=== PATIENT | female | born 1985 | race Caucasian/White ===

== ENCOUNTER 2018-01-22 08:00 | Outpatient (CLI) | payer MEDICAID, OTHER ==
[2018-01-22 12:36] LABS: BASOPHILS % (AUTO) 0.4 %; EOSINOPHILS # (AUTO) 0.1 10^3/uL (0.0-0.7); EOSINOPHILS % (AUTO) 2.1 %; HGB - HEMOGLOBIN 12.4 g/dL (12.0-16.0); LYMPHOCYTES # (AUTO) 1.3 10^3/uL (1.5-3.5); LYMPHOCYTES % (AUTO) 22.7 %; MEAN CORPUSCULAR HEMOGLOBIN 27.6 pg (27.0-31.0); MEAN PLATELET VOLUME 8.4 fL (7.9-10.8); MONOCYTES # (AUTO) 0.3 10^3/uL (0.0-1.0); MONOCYTES % (AUTO) 5.4 %; NEUTROPHILS # (AUTO) 4.1 10^3/uL (1.5-6.6); NEUTROPHILS % (AUTO) 69.4 %; PLT - PLATELET COUNT 237 10^3/uL (130-450); RED CELL DISTRIBUTION WIDTH 13.5 % (12.0-15.0); WHITE BLOOD COUNT 5.9 x10^3/uL (4.8-10.8)
[2018-01-22 12:49] LABS: ALBUMIN 3.7 g/dL (3.2-5.5); BILIRUBIN,TOTAL 0.4 mg/dL (0.2-1.0); CALCIUM 9.2 mg/dL (8.5-10.3); CREATININE 0.6 mg/dL (0.4-1.0); TOTAL PROTEIN 7.4 g/dL (6.7-8.2)
[2018-01-24 14:22] LABS: ANA SCREEN NEGATIVE (NEGATIVE)
== END 2018-01-22 08:01 | disposition home or self-care (01) ==
LOC: LAB.WCP 08:00
PROVIDERS: ATTEND Physician Assistant
DX: R53.83 Other fatigue (principal); R10.9 Unspecified abdominal pain
CPT/HCPCS: 36415; 80053; 83516; 84443; 85025; 86038

== ENCOUNTER 2023-12-04 08:00 | Outpatient (CLI) | payer MEDICAID ==
[2023-12-04 16:00] LABS: BILIRUBIN,URINE NEGATIVE (NEGATIVE); GLUCOSE, URINE (UA) NEGATIVE (NEGATIVE); KETONES,URINE (UA) NEGATIVE (NEGATIVE); LEUKOCYTE ESTERASE, URINE NEGATIVE (NEGATIVE); NITRITE,URINE NEGATIVE (NEGATIVE); OCCULT BLOOD,URINE NEGATIVE (NEGATIVE); PH,URINE 5.5 PH (5.0-7.5); PROTEIN,URINE NEGATIVE (NEGATIVE); UROBILINOGEN,URINE 0.2 (NORMAL) E.U./dL (NORMAL)
[2023-12-04 16:03] LABS: CLARITY,URINE CLOUDY (CLEAR)
[2023-12-04 16:11] LABS: AMORPHOUS SEDIMENT,UR Marked /LPF; BACTERIA,URINE None Seen /HPF (None Seen); RBC,URINE None Seen /HPF (0-5); SQUAMOUS EPITHELIAL CELL,UR FEW Squamous (<= Few); WBC,URINE 0-3 /HPF (0-5)
[2023-12-04 16:16] LABS: CREATININE,URINE 147.7 mg/dL; PROTEIN/CREATININE RATIO,URINE 0.1 (<=0.2)
== END 2023-12-04 23:59 | disposition home or self-care (01) ==
LOC: LAB.WC 08:00
PROVIDERS: ATTEND Obstetrics & Gynecology
DX: Z34.90 Encounter for supervision of normal pregnancy, unspecified, unspecified trimester (principal)
CPT/HCPCS: 81001; 82570; 84156; 87086

== ENCOUNTER 2023-12-09 08:37 | Outpatient (CLI) | payer MEDICAID ==
[2023-12-09 08:54] LABS: BASOPHILS % (AUTO) 0.3 %; EOSINOPHILS # (AUTO) 0.1 10^3/uL (0.0-0.7); EOSINOPHILS % (AUTO) 1.8 %; HCT - HEMATOCRIT 37.3 % (37.0-47.0); HGB - HEMOGLOBIN 11.8 g/dL (12.0-16.0); LYMPHOCYTES # (AUTO) 1.4 10^3/uL (1.5-3.5); MEAN CORPUSCULAR HEMOGLOBIN 23.7 pg (27.0-31.0); MEAN CORPUSCULAR HGB CONC 31.6 g/dL (32.0-36.0); MEAN CORPUSCULAR VOLUME 74.9 fL (81.0-99.0); MEAN PLATELET VOLUME 10.1 fL (7.9-10.8); MONOCYTES # (AUTO) 0.3 10^3/uL (0.0-1.0); MONOCYTES % (AUTO) 5.5 %; NEUTROPHILS # (AUTO) 4.3 10^3/uL (1.5-6.6); NEUTROPHILS % (AUTO) 69.2 %; PLT - PLATELET COUNT 245 10^3/uL (130-450); RED BLOOD COUNT 4.98 10^6/uL (4.20-5.40); RED CELL DISTRIBUTION WIDTH 15.8 % (12.0-15.0); WHITE BLOOD COUNT 6.2 x10^3/uL (4.8-10.8)
[2023-12-09 09:10] LABS: ALBUMIN/GLOBULIN RATIO 1.3 (1.0-2.2); BILIRUBIN,TOTAL 0.3 mg/dL (0.2-1.0); CALCIUM 9.9 mg/dL (8.5-10.3); CREATININE 0.6 mg/dL (0.6-1.3); POTASSIUM 3.7 mmol/L (3.5-4.5); TOTAL PROTEIN 7.2 g/dL (6.4-8.9)
[2023-12-10 05:13] LABS: HBsAG SCREEN Negative (Negative); HIV SCREEN 4TH GENERATION Non Reactive (Non Reactive)
[2023-12-10 07:10] LABS: RPR Non Reactive (Non Reactive)
[2023-12-10 09:10] LABS: VARICELLA-ZOSTER AB IGG 639 index (Immune >165)
== END 2023-12-09 08:38 | disposition home or self-care (01) ==
LOC: LAB 08:37
PROVIDERS: ATTEND Obstetrics & Gynecology
DX: O99.891 Other specified diseases and conditions complicating pregnancy (principal); R71.8 Other abnormality of red blood cells
CPT/HCPCS: 36415; 80053; 82728; 84702; 85025; 86592; 86762; 86787; 86803; 86850; 86900; 86901; 87340; 87389

== ENCOUNTER 2023-12-16 08:28 | Outpatient (CLI) | payer MEDICAID ==
--- NOTE | 2023-12-16 10:36 | Ultrasound Report ---
PROCEDURE: OB 1st Trimester INDICATIONS: POSITIVE [facility] OUTSIDE/PRIOR DATING DATA: Last menstrual period (LMP): 10/07/2023. LMP-based estimated date of delivery (VIDAL): 07/13/2024. First dating scan (date and location): 12/16/2023. Estimated date of delivery (VIDAL) from first dating scan: 07/08/2024. TECHNIQUE: Real-time scanning was performed of the fetus and maternal pelvic organs, with image documentation. COMPARISON: None. FINDINGS: Retroverted uterus contains a fundal gestational sac. No subchorionic hemorrhage. There is a single f etal pole with an average crown-rump length of 38.3 mm corresponding to a 10 week 5 day gestation int erval cardiac activity at a rate of 178 bpm. Normal yolk sac and unfused amnion are both seen. Maternal cervix is closed measuring 4.3 cm in length. There is a corpus luteum cyst in the right ovar y. Left ovary appears normal. No free pelvic fluid. IMPRESSION: Single live intrauterine with a gestational age of 10 weeks 5 days and sonographic due date of 07/08/2024. Reviewed by: Hannah Rodriguez MD on 12/16/2023 10:35 AM PDT Approved by: Hannah Rodriguez MD on 12/16/2023 10:35 AM PDT Station ID: [id number]
== END 2023-12-16 08:29 | disposition home or self-care (01) ==
LOC: DI 08:28
PROVIDERS: ATTEND Obstetrics & Gynecology
DX: Z34.91 Encounter for supervision of normal pregnancy, unspecified, first trimester (principal)

== ENCOUNTER 2024-01-01 08:00 | Outpatient (CLI) | payer MEDICAID ==
[2024-01-01 23:07] LABS: CHLAMYDIA TRACHOMATIS DNA NEGATIVE (NEGATIVE); NEISSERIA GONORRHOEAE DNA NEGATIVE (NEGATIVE); TRICHOMONAS VAGINALIS DNA NEGATIVE (NEGATIVE)
== END 2024-01-01 23:59 | disposition home or self-care (01) ==
LOC: LAB.WC 08:00
PROVIDERS: ATTEND Obstetrics & Gynecology
DX: Z11.3 Encounter for screening for infections with a predominantly sexual mode of transmission (principal)
CPT/HCPCS: 87491; 87591; 87661

== ENCOUNTER 2024-01-01 12:39 | Outpatient (CLI) | payer MEDICAID ==
[2024-01-01 20:52] LABS: ESTIMATED AVERAGE GLUCOSE 88 mg/dL (70-100); HEMOGLOBIN A1c% 4.7 % (4.27-6.07)
== END 2024-01-01 12:40 | disposition home or self-care (01) ==
LOC: LAB 12:39
PROVIDERS: ATTEND Obstetrics & Gynecology
DX: O09.522 Supervision of elderly multigravida, second trimester (principal)
CPT/HCPCS: 36415; 83036

== ENCOUNTER 2024-02-25 06:48 | Outpatient (CLI) | payer MEDICAID ==
--- NOTE | 2024-02-25 19:58 | Ultrasound Report ---
PROCEDURE: OB Anatomy Scan INDICATIONS: SUPERVISION OF OUTSIDE/PRIOR DATING DATA: Last menstrual period (LMP): 10/07/2023. LMP-based estimated date of delivery (VIDAL): 07/13/2024. First dating scan (date and location): 12/16/2023. Estimated date of delivery (VIDAL) from first dating scan: 07/08/2024. The below data below was generated using the working VIDAL of 07/13/2024 TECHNIQUE: Real-time scanning was performed of the fetus, with image documentation and biometric measurements. Endovaginal scanning: Not performed. COMPARISON: 12/16/2023. FINDINGS: General: A single living intrauterine gestation is present. Presentation: Breech Placenta: Placental position is posterior, without previa. Amniotic fluid index: 10.5 cm, within normal limits for gestational age. heart rate: 140 beats per minute. Maternal cervical canal: 7.0 cm long; normal length is 2.5 cm or more. biometrics: Biparietal diameter: 4.8 cm, 20 weeks 4 days, 68th percentile Head circumference: 19.4 cm, 21 weeks 4 days, 94th percentile Abdominal circumference: 16.7 cm, 21 weeks 5 days, 89th percentile Femur length: 3.4 cm, 20 weeks 5 days, 62nd percentile Estimated gestational age from initial scan: 20 weeks 1 day Composite gestational age from present scan: 21 weeks 1 day Estimated weight and percentile: 411.7 g, 95th percentile Measurement variability in biometric dating: +/- 10 days from 12-20 weeks gestation, +/- 2 weeks from 20-30 weeks gestation, +/- 3 weeks at 30 weeks gestation or later. Anatomic survey: Neuro: Ventricles are normal at less than 10 mm. Cisterna magna is normal at 3-11 mm. Cerebellum i s normal in size and morphology. Nuchal skin fold: Normal at less than 6 mm between 14 and 20 weeks gestational age. Face: Nose and lips, facial profile are normal. Spine: No evidence for spina bifida. Heart: 4-chambered heart is present, with normal ventricular outflow tracts. Diaphragm: Diaphragm is intact. Stomach: Left-sided stomach is present. Kidneys: No hydronephrosis. Normal is less than 5 mm in 2nd trimester, less than 7 mm in 3rd trimester. Cord: 3 vessel cord has orthotopic insertion. Bladder: Normal in size. Extremities: All 4 extremities are visualized. IMPRESSION: 1. Living second trimester intrauterine with no sonographic evidence of complications. 2. Normal second trimester anatomy study Reviewed by: Nick Mcallister MD on 02/25/2024 7:56 PM PDT Approved by: Nick Mcallister MD on 02/25/2024 7:56 PM PDT Station ID: [id number]
== END 2024-02-25 06:49 | disposition home or self-care (01) ==
LOC: DI 06:48
PROVIDERS: ATTEND Obstetrics & Gynecology
DX: O09.522 Supervision of elderly multigravida, second trimester (principal); O99.212 Obesity complicating pregnancy, second trimester; Z3A.21 21 weeks gestation of pregnancy

== ENCOUNTER 2024-04-17 09:06 | Outpatient (CLI) | payer MEDICAID ==
[2024-04-17 10:19] LABS: HCT - HEMATOCRIT 33.7 % (37.0-47.0); HGB - HEMOGLOBIN 11.3 g/dL (12.0-16.0); MEAN CORPUSCULAR HEMOGLOBIN 29.6 pg (27.0-31.0); MEAN CORPUSCULAR HGB CONC 33.5 g/dL (32.0-36.0); MEAN CORPUSCULAR VOLUME 88.2 fL (81.0-99.0); MEAN PLATELET VOLUME 9.8 fL (7.9-10.8); RED BLOOD COUNT 3.82 10^6/uL (4.20-5.40); RED CELL DISTRIBUTION WIDTH 14.3 % (12.0-15.0); WHITE BLOOD COUNT 9.2 x10^3/uL (4.8-10.8)
[2024-04-17 21:15] LABS: ESTIMATED AVERAGE GLUCOSE 74 mg/dL (70-100); HEMOGLOBIN A1c% 4.2 % (4.27-6.07)
[2024-04-18 04:13] LABS: RPR Non Reactive (Non Reactive)
== END 2024-04-17 09:07 | disposition home or self-care (01) ==
LOC: LAB 09:06
PROVIDERS: ATTEND Obstetrics & Gynecology
DX: O09.522 Supervision of elderly multigravida, second trimester (principal); O99.810 Abnormal glucose complicating pregnancy; O99.891 Other specified diseases and conditions complicating pregnancy; R71.8 Other abnormality of red blood cells
CPT/HCPCS: 36415; 82728; 82950; 83036; 85027; 86592

== ENCOUNTER 2024-04-20 08:58 | Outpatient (CLI) | payer MEDICAID ==
[2024-04-20 09:32] LABS: GTT GLUCOSE,FASTING 91 mg/dL (74-109)
== END 2024-04-20 08:59 | disposition home or self-care (01) ==
LOC: LAB 08:58
PROVIDERS: ATTEND Obstetrics & Gynecology
DX: O99.810 Abnormal glucose complicating pregnancy (principal); Z3A.00 Weeks of gestation of pregnancy not specified
CPT/HCPCS: 36415; 82951; 82952

== ENCOUNTER 2024-07-07 07:30 | Inpatient (IN) ==
[2024-07-16] MEDS ORDERED: ceFAZolin (2G) 2 GM in SODIUM CHLORIDE 0.9% MINIBAG 100 ML IV ONE (07:41)
[2024-07-16] MEDS: LACTATED RINGERS 1,000 ML IV SCH ×2 (08:00→12:59)
[2024-07-16 08:16] LABS: BASOPHILS % (AUTO) 0.1 %; EOSINOPHILS % (AUTO) 0.4 %; HCT - HEMATOCRIT 34.8 % (37.0-47.0); HGB - HEMOGLOBIN 11.9 g/dL (12.0-16.0); LYMPHOCYTES # (AUTO) 1.2 10^3/uL (1.5-3.5); LYMPHOCYTES % (AUTO) 14.6 %; MEAN CORPUSCULAR HEMOGLOBIN 30.2 pg (27.0-31.0); MEAN CORPUSCULAR HGB CONC 34.2 g/dL (32.0-36.0); MEAN CORPUSCULAR VOLUME 88.3 fL (81.0-99.0); MONOCYTES # (AUTO) 0.5 10^3/uL (0.0-1.0); MONOCYTES % (AUTO) 6.2 %; NEUTROPHILS # (AUTO) 6.4 10^3/uL (1.5-6.6); NEUTROPHILS % (AUTO) 78.1 %; PLT - PLATELET COUNT 150 10^3/uL (130-450); RED BLOOD COUNT 3.94 10^6/uL (4.20-5.40); RED CELL DISTRIBUTION WIDTH 13.7 % (12.0-15.0); WHITE BLOOD COUNT 8.2 x10^3/uL (4.8-10.8)
[2024-07-16 08:27] LABS: ALBUMIN 3.3 g/dL (3.2-5.5); ALBUMIN/GLOBULIN RATIO 1.1 (1.0-2.2); BILIRUBIN,TOTAL 0.3 mg/dL (0.2-1.0); CALCIUM 8.6 mg/dL (8.5-10.3); CREATININE 0.5 mg/dL (0.6-1.3); POTASSIUM 3.8 mmol/L (3.5-4.5); TOTAL PROTEIN 6.2 g/dL (6.4-8.9)
--- NOTE | 2024-07-16 10:05 | HISTORY & PHYSICAL EXAMINATION ---
Admit History Smoking Status: Never smoker Other Maternal History Other Maternal History: HPI: Lexy is a 39 yo at 40w3d who is admitted for repeat delivery. Lexy feeling well this morning. Reports irregular contractions. Denies LOF, VB. + FM. She was seen earlier in the week at outside facility for possible TOLAC, however, has elected to proceed with repeat delivery. monitoring form, copied from record: 39 yo LMP: 10/07/23 VIDAL by LMP: 07/13/24 US:12/16/23 @ 10+5 US VIDAL 07/08/24 c/w LMP Final VIDAL:07/13/2024 Problems: - C/S x2, x3 - desires rCS with sterilization. [facility] signed 04/29 (DECLINES clips if unable to complete salpingectomy for some reason). S/p consult at [facility] on 06/10, planning for TOLAC there if she goes into labor. Desires rCS at 40wk to allow time for labor. - BMI 42, plan for 32wk growth US (EFW 95%tile on anatomy US), NSTs weekly 34wk. Growth US on 05/18: 2341 g, 95 percentile - AMA - Celiac - Single elevated BP at 21w, was NOT resting BP. Not taking 81mg ASA- made her feel like she ate gluten All girls at home, its a BOY! FOB Reyes. Pre- Weight:248.8 BMI: 42.20 Blood type: A+ Antibody: negative CBC: H/H 11.8/37.3 plt 245 Ferritin- 6.2 Glucose 137 (random) A1c 4.7% RUB:NON immune VZV:immune HBsAg: Negative HepC: NR RPR/AB-EIA: NR HIV: NR PAP:01/01/24- Normal/HPV negative GC/CT:01/01/2024 Negative HSV:denies in self and partner Genetic testin01/01/2024 MaterniT- Negative Covid: sick 2021 and vaccinated Flu: 04/29/2024 RSV: FAS: Placenta:posterior w/o previa Cord:3VC THIEN:10.5cm EFW:411.7g 95%ile 50gm OGCT: 144 A1C 4.2 3HR GTT: f: 91 1hr: 184 2hr 150 3hr 120 TDAP: 04/29/2024 Breast Pump: 04/29/2024 RPR: NR 3rd trimester PLT 171 HGB 11.3 HCT 33.4 Ferritin 10.8 3rd trimester HIV GBS: Delivery plan: Desires TOLAC if labor prior to scheduled rCS. rCS with BS ([facility] signed 04/29). MOD: PE: Vitals signs reviewed, BP mildly elevated. Gen: NAD CV: RRR Resp: non labored respirations Chest: non labored respirations Abd: gravid, non tender. Ext: only trace LE edema NST: reactive, Cat 1 Labs: CBC, CMP, T&S reviewed A/P: 39 yo at 40w3d: - H/o delivery - Desires permanent sterilization Plan to proceed with repeat delivery, laparoscopic bilateral salpingectomy. We reviewed risks of delivery including pain, bleeding (possibly requiring blood transfusion or as a life-saving measure hysterectomy), infection, damage to nearby structures including bowel/bladder, longer recovery time , increased risk for DVT, risk of /injury to mom or baby. With regards to sterilization, discussed risks or , ectopic , regret. She consents to removal of tubal segment if unable to completely remove tube, however, declines use of surgical clips. Consent was signed. Rene Tom MD Meds/Allgy Home Medications Ambulatory Orders Medication Instructions Recorded Confirmed acetaminophen 325 mg capsule 325 mg PO Q6H PRN 05/15/24 07/10/24 (Tylenol) ferrous sulfate 325 mg (65 mg 325 mg PO QDAY 05/15/24 07/10/24 iron) tablet vitamin#30 30 mg iron-10 cap PO 05/15/24 07/10/24 mg iron-folic acid 1 mg-omg3 capsule Allergies Allergies Allergy/AdvReac Type Severity Reaction Status Date / Time barley Allergy Unknown Unknown Verified 07/10/24 10:58 gluten Allergy Unknown Unknown Verified 07/10/24 10:58 rye grass Allergy Unknown Unknown Verified 07/10/24 10:58 [facility] Surgical History Surgical History (Updated 07/13/24 @ 12:44 by GORAN Espino) History of delivery Social History Social History (Updated 05/15/24 @ 12:57 by Christal Fleming MA) Smoking Status: Never smoker Do you dip or chew tobacco?: No ETOH Use: None Substance Use: denies use Plan for Labor Plan For Labor I expect patient to be DC'd or transferred within 96 hours.: Yes
[2024-07-16] MEDS ORDERED: METOCLOPRAMIDE 10 MG/2 ML VIAL IVP PRN ×2 (10:14→12:02)
[2024-07-16] MEDS ORDERED: ONDANSETRON 4 MG/2 ML VIAL IVP PRN ×2 (10:14→12:02)
[2024-07-16] MEDS ORDERED: ePHEDrine 50 MG/ML VIAL IVP PRN ×2 (10:14→12:02)
[2024-07-16] MEDS ORDERED: MORPHINE 2 MG/ML CARPUJECT IVP PRN (10:14)
[2024-07-16] MEDS ORDERED: ATROPINE ABBOJECT 1 MG/10 ML SYRINGE IVP PRN (10:14)
[2024-07-16] MEDS ORDERED: fentaNYL 100 MCG/2 ML VIAL IVP PRN (10:14)
[2024-07-16] MEDS ORDERED: HYDROmorphone 0.5 MG/0.5 ML SYRINGE IVP PRN (10:14)
[2024-07-16] MEDS ORDERED: NALOXONE 0.4 MG/ML VIAL IVP PRN ×3 (10:14→13:08)
--- NOTE | 2024-07-16 10:14 | ANESTHESIA PROCEDURE NOTE ---
Pre-Anesthesia VS, & Labs Diagnosis Surgical Diagnosis:: previous c/s, desires sterilization Procedure Procedure: repeat c/s, B tubal ligation NPO NPO: >8 hours Is Patient ?: Yes Lab Results Lab results reviewed: Yes Meds/Allgy Home Medications Ambulatory Orders Medication Instructions Recorded Confirmed acetaminophen 325 mg capsule 325 mg PO Q6H PRN 05/15/24 07/10/24 (Tylenol) ferrous sulfate 325 mg (65 mg 325 mg PO QDAY 05/15/24 07/10/24 iron) tablet vitamin#30 30 mg iron-10 cap PO 05/15/24 07/10/24 mg iron-folic acid 1 mg-omg3 capsule Allergies Allergies Allergy/AdvReac Type Severity Reaction Status Date / Time barley Allergy Unknown Unknown Verified 07/10/24 10:58 gluten Allergy Unknown Unknown Verified 07/10/24 10:58 rye grass Allergy Unknown Unknown Verified 07/10/24 10:58 PFS Surgical History Surgical History (Updated 07/13/24 @ 12:44 by GORAN Espino) History of delivery Social History Social History (Updated 05/15/24 @ 12:57 by Christal Fleming MA) Smoking Status: Never smoker Do you dip or chew tobacco?: No ETOH Use: None Substance Use: denies use Anesthesia Exam (Expanded) Exam General: Alert, Oriented x3 and Cooperative Dental: WNL Mouth Openin Fingerbreadth Neck Mobility: Normal Mallampati classification: II Thyromental Distance: 4-6 cm Respiratory: Lungs clear and Normal breath sounds Cardiovascular: Regular rate Neurological: Normal speech Mental/Cognitive Status: Alert/Oriented X3 and Normal for patient Plan Plan Anesthesia Type: Spinal Consent for Procedure(s) Verified and Reviewed: Yes Code Status: Attempt Resuscitation ASA Classification ASA classification: 2-Mild systemic disease Is this case an emergency?: No
[2024-07-16] MEDS ORDERED: OXYTOCIN/SODIUM CHLORIDE 500 ML IV ONE (10:25)
[2024-07-16] MEDS ORDERED: ePHEDrine 50 MG/ML VIAL IVP ONE (10:32)
[2024-07-16] MEDS ORDERED: OXYTOCIN 10 UNIT/ML VIAL ONE (10:33)
[2024-07-16] MEDS ORDERED: MORPHINE PF 5 MG/10 ML VIAL ONE (10:35)
[2024-07-16] MEDS ORDERED: fentaNYL 100 MCG/2 ML VIAL ONE (10:35)
[2024-07-16] MEDS ORDERED: miSOPROStoL 200 MCG TABLET ONE (11:24)
[2024-07-16] MEDS ORDERED: CARBOPROST TROMETHAMINE 250 MCG/ML VIAL IM ONE (11:24)
[2024-07-16] MEDS ORDERED: METHYLERGONOVINE 0.2 MG/ML VIAL ONE (11:25)
[2024-07-16] MEDS ORDERED: ONDANSETRON 4 MG/2 ML VIAL ONE (11:49)
[2024-07-16] MEDS ORDERED: KETOROLAC 30 MG/ML VIAL ONE (11:55)
[2024-07-16] MEDS ORDERED: diphenhydrAMINE INJ 50 MG/ML VIAL IVP PRN (12:02)
[2024-07-16] MEDS ORDERED: NALBUPHINE 10 MG/ML AMP IVP PRN (12:02)
[2024-07-16] MEDS ORDERED: NIFEdipine 10 MG CAPSULE PO PRN (13:08)
[2024-07-16] MEDS ORDERED: OXYTOCIN/SODIUM CHLORIDE 500 ML IV PRN (13:08)
[2024-07-16] MEDS ORDERED: LABETALOL 20 MG/4 ML SYRINGE IVP PRN ×3 (13:08)
[2024-07-16] MEDS ORDERED: WITCH HAZEL/GLYCERIN 1 PAD TOP PRN (13:08)
[2024-07-16] MEDS ORDERED: HYDROCORTISONE 1% CREAM 28 GM TUBE TOP PRN (13:08)
[2024-07-16] MEDS ORDERED: MAGNESIUM HYDROXIDE 2,400 MG/30 ML UDC PO PRN (13:08)
[2024-07-16] MEDS ORDERED: oxyCODONE 5 MG TABLET PO PRN (13:08)
[2024-07-16] MEDS ORDERED: hydrALAZINE INJ 20 MG/ML VIAL IVP PRN ×2 (13:08)
--- NOTE | 2024-07-16 13:12 | OPERATIVE REPORT ---
Operative Report General Admit Date: 07/16/24 Procedure Data: Operation Date: 07/16/24 09:00 Proposed Procedures p REPEAT Section(Not Applicable) - Rene Tom MD s Bilateral Tubal Ligation(Bilateral) - Rene Tom MD Actual Procedures p REPEAT Section(Not Applicable) - Rene Tom MD s BILATERAL SALPHINGECTOMY(Bilateral) - Rene Tom MD Pre-Op Diagnosis: history of delivery, desires permanent sterilization Anesthesia Type Spinal Case Staff Anesthesia Provider: Gil Sapp Assisting Provider: Luma Mcelroy Case Times Into Recovery: 07/16/24 12:59 Procedure Start: 07/16/24 11:30 Procedure End: 07/16/24 12:48 Time out: 07/16/24 11:23 Other Other Information/Narrative: DATE OF PROCEDURE: 07/16/24 Surgeon: Rene Tom MD Coin Box Inspector: Luma Mcelroy CNM, SEVERIANO An call center assistant was necessary as an call center assistant for the entire procedure for adequate retraction and visualization, to shorten operative time, to assist with delivery of the , and to lower the risk of surgical injury. Pre-Op Diagnosis: History of delivery x 2, desires permanent sterilization Post-Op Diagnosis: same Procedures: repeat delivery, laparoscopic bilateral salpingectomy Findings: - Normal appearing uterus/tubes/ovaries - clear amniotic fluid - very minimal adhesive disease Specimens: bilateral fallopian tubes sent as one specimen Anesthesia Technique: spinal Estimated Blood Loss (mls): 700 Blood Replacement (mls): none Fluid Replacement (mls): 1.5L Drains: mandujano, 125cc clear yellow urine Complications: none Condition: stable Procedure in Detail: The patient was taken to the operating room where spinal anesthesia was placed. Mandujano catheter was placed. She was prepared and draped in the normal sterile fashion in the dorsal supine position with a leftward tilt. 2g Ancef and 500mg azithromycin were given for prophylaxis. A Pfannenstiel skin incision was made with the scalpel at the location of her prior incisions and was carried down through the subcutaneous tissue in the midline. The remainder of the subcutaneous tissue was then bluntly. The fascia was incised in the midline and the incision was extended bluntly and with Mayos. The superior aspect of the fascial incision was grasped with two Young clamps, elevated, and the underlying rectus muscles dissected off both bluntly and with mayos. Attention was turned to the inferior aspect of the fascial incision, which in a similar fashion, was grasped with two Young clamps, elevated, and the underlying rectus muscles dissected off both bluntly and with the aid of the mayos. The rectus muscles were in the midline, and the underlying peritoneum entered bluntly. The peritoneal incision was extended superiorly and inferiorly with good visualization of the bladder. The bladder blade was inserted. A bladder flap was not created. The lower uterine segment was incised in a transverse fashion with the scalpel. The uterine incision was extended bluntly. The bladder blade was removed and the infants head was brought to the hysterotomy. Fundal pressure applied and the infant delivered atraumatically. The cord was clamped and cut after 60 sec and the was handed off to the waiting provider. The placenta was removed with gentle uterine massage and cord traction. The uterus was exteriorized and cleared of all clots and debris with moist laparotomy sponges. The uterine incision was repaired with O Vicryl in a running fashion. A second layer of 0 monocryl was used in an imbricating fashion for additional hemostasis. A single additional figure of eight stitch of monocryl was placed on the right side of the hysterotomy. Hemostasis noted. The bilateral fallopian tubes were each transected from the mesosalpinx and shinnecock colin using the ligasure device. Hemostasis noted. The posterior cul-de-sac was cleared of all clots and debris with laparotomy sponges, and the uterus was returned to the abdomen. The gutters were cleared of all clots. Excellent hemostasis of the hysterotomy and adnexal regions was again noted. The rectus muscles were carefully examined and oozing noted on the superior left side. Cautery, followed by a figure of eight stitch of monocryl was placed to achieve hemostasis. The fascia was reapproximated with 1 PDS in a running fashion. The subcutaneous tissues was irrigated. The subcutaneous tissue was reapproximated with 2-0 Vicryl in two layers, and the skin was closed with 4-0 monocryl. The patient tolerated the procedure well. Sponge, lap, needle, and instrument counts were correct at the end of the procedure. The patient was taken to the recovery room in stable. Rene Tom MD
[2024-07-16] MEDS: fentaNYL 100 MCG/2 ML VIAL IT ONE (13:35)
[2024-07-16] MEDS: MORPHINE PF 5 MG/10 ML VIAL IT ONE (13:36)
[2024-07-16] MEDS: AZITHROMYCIN INJ 500 MG in SODIUM CHLORIDE 0.9% 250 ML IV ONE (13:36)
[2024-07-16] MEDS: ACETAMINOPHEN 500 MG TABLET PO SCH (15:58)
--- NOTE | 2024-07-16 16:30 | PHARMACY PROGRESS NOTE ---
Best Possible Medication History Admit Date and Time: 07/16/24 [id number] Home Medications Medication Instructions Recorded Confirmed Type acetaminophen 325 mg capsule 325 mg PO Q6H PRN pain 05/15/24 07/16/24 History (Tylenol) ferrous sulfate 325 mg (65 mg 325 mg PO QDAY 05/15/24 07/16/24 History iron) tablet vitamin#30 30 mg iron-10 1 cap PO DAILY 05/15/24 07/16/24 History mg iron-folic acid 1 mg-omg3 capsule Processed by: Pharmacy (Medication reconciliation completed by pharmacy assistantMariia) Medications reviewed in ED?: No Medication History completed: Yes Patient Interview: Completed Secondary Source(s): Insurance records [employer] [employer] Statement: As the person ultimately responsible for medication therapy, providers are able to order a medication from an existing home medication list in [facility] via the "Reconcile Routine" prior to Confirmation of that medication by manager client support. Such practice is discouraged except when the physician, in their clinical judgment, deems that a medical need exists for a medication without regard to previous use.
[2024-07-16] MEDS: KETOROLAC 30 MG/ML VIAL IVP SCH (18:18)
[2024-07-17] MEDS: DOCUSATE SODIUM 100 MG CAPSULE PO SCH (00:12)
[2024-07-17 05:47] LABS: HCT - HEMATOCRIT 30.4 % (37.0-47.0); HGB - HEMOGLOBIN 10.4 g/dL (12.0-16.0); MEAN CORPUSCULAR HEMOGLOBIN 30.3 pg (27.0-31.0); MEAN CORPUSCULAR HGB CONC 34.2 g/dL (32.0-36.0); MEAN CORPUSCULAR VOLUME 88.6 fL (81.0-99.0); RED BLOOD COUNT 3.43 10^6/uL (4.20-5.40); RED CELL DISTRIBUTION WIDTH 13.9 % (12.0-15.0); WHITE BLOOD COUNT 8.5 x10^3/uL (4.8-10.8)
[2024-07-17] MEDS: IBUPROFEN 600 MG TABLET PO SCH (13:06)
--- NOTE | 2024-07-17 16:24 | PROVIDER PROGRESS NOTE ---
Subjective Prog Note Date Prog Note Date: 07/17/24 Prog Note Time: 16:19 Subjective Pt reports feeling: Improved Subjective: POD #1 s/p repeat : She is overall feeling well but notes pain is a bit worse as Duramorph has worn off. Reports tolerating PO, passing flatus, and controlling pain with oral meds. Baby is at the bedside, and is going well. Current Medications Current Medications Current Medications: Current Medications Generic Name Dose Route Start Last Admin Trade Name Freace PRN Reason Stop Dose Admin Acetaminophen 1,000 mg 07/16/24 14:00 07/17/24 16:09 Acetaminophen 500 Mg Tablet PO 1,000 mg Q8H ESTRELLA Administration Docusate Sodium 200 mg 07/16/24 21:00 07/17/24 08:20 Docusate Sodium 100 Mg Capsule PO 200 mg BID ESTRELLA Administration Hydralazine HCl 10 mg 07/16/24 13:08 Hydralazine Inj 20 Mg/Ml Vial IVP .ONCE PRN SBP> or= 160 OR DBP> or= 110 Protocol Hydralazine HCl 5 - 20 mg 07/16/24 13:08 Hydralazine Inj 20 Mg/Ml Vial IVP Q20M PRN SBP> or= 160 OR DBP> or= 110 Protocol Hydrocortisone 1 applic 07/16/24 13:08 Hydrocortisone 1% Cream 28 Gm Tube TOP QID PRN Hemorrhoids Oxytocin/Sodium Chloride 500 mls @ 999 mls/hr 07/16/24 13:08 Pitocin/Sodium Chloride IV PRN PRN POST- HEMORR PREVENTION Protocol 999 MILLIUNIT/MIN Lactated Ringer's 1,000 mls @ 125 mls/hr 07/16/24 07:41 07/16/24 18:44 Lr IV Infused .Q8H ESTRELLA Infusion Ibuprofen 600 mg 07/17/24 14:00 07/17/24 13:06 Ibuprofen 600 Mg Tablet PO 600 mg Q6HR ESTRELLA Administration Labetalol HCl 20 - 40 mg 07/16/24 13:08 Labetalol 20 Mg/4 Ml Syringe IVP Q10M PRN SBP> or= 160 OR DBP> or= 110 Protocol Labetalol HCl 20 mg 07/16/24 13:08 Labetalol 20 Mg/4 Ml Syringe IVP .ONCE PRN SBP> or= 160 OR DBP> or= 110 Protocol Labetalol HCl 20 - 80 mg 07/16/24 13:08 Labetalol 20 Mg/4 Ml Syringe IVP Q10M PRN SBP> or= 160 OR DBP> or= 110 Protocol Magnesium Hydroxide 2,400 mg 07/16/24 13:08 Magnesium Hydroxide 2,400 Mg/30 Ml Udc PO Q8HR PRN Constipation Naloxone HCl 0.4 mg 07/16/24 13:08 Naloxone 0.4 Mg/Ml Vial IVP .ONCE PRN Opioid overdose Nifedipine 10 - 20 mg 07/16/24 13:08 Nifedipine 10 Mg Capsule PO Q20M PRN SBP> or= 160 OR DBP> or= 110 Protocol Oxycodone HCl 5 - 10 mg 07/16/24 13:08 Oxycodone 5 Mg Tablet PO Q4HR PRN Severe Pain 6 -10 Simethicone 80 mg 07/16/24 13:08 Simethicone Chew 80 Mg Tablet PO TID PRN Gas Witch Angie/Glycerin 1 pad 07/16/24 13:08 Witch Angie/Glycerin 1 Pad TOP PRN PRN Itching Objective Vital Signs/Intake & Output Reviewed Vital Signs: Yes Vital Signs: Vital Signs x48h Temp Pulse Resp BP 07/17/24 12:51 37.0 C 67 18 133/78 H Intake & Output: Intake & Output 07/14/24 07/15/24 07/16/24 07/17/24 23:59 23:59 23:59 23:59 Intake Total 1999 / 1999 900 / 900 Output Total 355 / 355 3300 / 3300 Balance 1645 / 1645 -2400 / -2400 Weight (kg) 117 kg Objective General Appearance: positive No acute distress and Alert Eyes Bilateral: positive Normal inspection Neck: positive Nml inspection Respiratory: positive Breath sounds nml Cardiovascular: positive Regular rate & rhythm and No murmur Abdomen: positive Other (Uterine fundus firm at umbilicus; appropriate tenderness to palpation; rare bowel sounds present) Skin: positive Color nml Extremities: positive Non-tender, Full ROM and Nml appearance Neurologic/Psychiatric: positive Oriented x3, Motor nml and Mood/affect nml Lab Results 07/17/24 05:20 07/16/24 08:07 Other Labs: Lab Results x24hrs 07/17/24 Range/Units 05:20 WBC 8.5 (4.8-10.8) x10^3/uL RBC 3.43 L (4.20-5.40) 10^6/uL Hgb 10.4 L (12.0-16.0) g/dL Hct 30.4 L (37.0-47.0) % MCV 88.6 (81.0-99.0) fL MCH 30.3 (27.0-31.0) pg MCHC 34.2 (32.0-36.0) g/dL RDW 13.9 (12.0-15.0) % Plt Count 123 L (130-450) 10^3/uL MPV 11.0 H (7.9-10.8) fL Assessment/Plan Problem List (1) care following delivery: Impression: POD #1 s/p repeat with bilateral salpingectomy (for sterilization). Doing well. Labs note mild thrombocytopenia without BP elevation or other si/sx of preE. - Cont routine postop care and / support. - Cont Tylenol/Motrin for pain with oxycodone prn for breakthrough pain. - Blood type A pos, Rubella non-immune, Varicella immune. MMR ordered. - Contraception: bilateral salpingectomy completed. - Anticipate discharge home tomorrow morning.
[2024-07-17] MEDS: SIMETHICONE CHEW 80 MG TABLET PO PRN (19:07)
[2024-07-18] MEDS: MEASLES,MUMPS & RUBELLA VACC 0.5 ML VIAL SUBQ ONE (07:04)
[2024-07-18 08:10] VITALS: O2SAT 99
[2024-07-18 08:44] LABS: BASOPHILS % (AUTO) 0.1 %; EOSINOPHILS # (AUTO) 0.1 10^3/uL (0.0-0.7); EOSINOPHILS % (AUTO) 0.8 %; HCT - HEMATOCRIT 30.8 % (37.0-47.0); HGB - HEMOGLOBIN 10.3 g/dL (12.0-16.0); LYMPHOCYTES # (AUTO) 1.2 10^3/uL (1.5-3.5); LYMPHOCYTES % (AUTO) 15.5 %; MEAN CORPUSCULAR HGB CONC 33.4 g/dL (32.0-36.0); MEAN CORPUSCULAR VOLUME 89.8 fL (81.0-99.0); MEAN PLATELET VOLUME 10.2 fL (7.9-10.8); MONOCYTES # (AUTO) 0.4 10^3/uL (0.0-1.0); NEUTROPHILS # (AUTO) 6.2 10^3/uL (1.5-6.6); PLT - PLATELET COUNT 139 10^3/uL (130-450); RED BLOOD COUNT 3.43 10^6/uL (4.20-5.40)
[2024-07-18] MEDS: NIFEdipine ER 30 MG TABLET PO SCH (08:57)
--- NOTE | 2024-07-18 09:25 | PROVIDER PROGRESS NOTE ---
Subjective Prog Note Date Prog Note Date: 07/18/24 Prog Note Time: 09:21 Subjective Pt reports feeling: No change Subjective: POD #2 s/p uncomplicated repeat with tubal sterilization - She reports she's feeling well with no acute concerns overnight. She cont to tolerate a regular diet and has no concerns with voiding, ambulating or pain control (with motrin and tylenol only). She is passing flatus but no stool yet. Current Medications Current Medications Current Medications: Current Medications Generic Name Dose Route Start Last Admin Trade Name Freq PRN Reason Stop Dose Admin Acetaminophen 1,000 mg 07/16/24 14:00 07/18/24 08:06 Acetaminophen 500 Mg Tablet PO 1,000 mg Q8H ESTRELLA Administration Docusate Sodium 200 mg 07/16/24 21:00 07/18/24 08:08 Docusate Sodium 100 Mg Capsule PO 200 mg BID ESTRELLA Administration Hydralazine HCl 10 mg 07/16/24 13:08 Hydralazine Inj 20 Mg/Ml Vial IVP .ONCE PRN SBP> or= 160 OR DBP> or= 110 Protocol Hydralazine HCl 5 - 20 mg 07/16/24 13:08 Hydralazine Inj 20 Mg/Ml Vial IVP Q20M PRN SBP> or= 160 OR DBP> or= 110 Protocol Hydrocortisone 1 applic 07/16/24 13:08 Hydrocortisone 1% Cream 28 Gm Tube TOP QID PRN Hemorrhoids Oxytocin/Sodium Chloride 500 mls @ 999 mls/hr 07/16/24 13:08 Pitocin/Sodium Chloride IV PRN PRN POST- HEMORR PREVENTION Protocol 999 MILLIUNIT/MIN Lactated Ringer's 1,000 mls @ 125 mls/hr 07/16/24 07:41 07/16/24 18:44 Lr IV Infused .Q8H ESTRELLA Infusion Ibuprofen 600 mg 07/17/24 14:00 07/18/24 07:02 Ibuprofen 600 Mg Tablet PO 600 mg Q6HR ESTRELLA Administration Labetalol HCl 20 - 40 mg 07/16/24 13:08 Labetalol 20 Mg/4 Ml Syringe IVP Q10M PRN SBP> or= 160 OR DBP> or= 110 Protocol Labetalol HCl 20 mg 07/16/24 13:08 Labetalol 20 Mg/4 Ml Syringe IVP .ONCE PRN SBP> or= 160 OR DBP> or= 110 Protocol Labetalol HCl 20 - 80 mg 07/16/24 13:08 Labetalol 20 Mg/4 Ml Syringe IVP Q10M PRN SBP> or= 160 OR DBP> or= 110 Protocol Magnesium Hydroxide 2,400 mg 07/16/24 13:08 Magnesium Hydroxide 2,400 Mg/30 Ml Udc PO Q8HR PRN Constipation Naloxone HCl 0.4 mg 07/16/24 13:08 Naloxone 0.4 Mg/Ml Vial IVP .ONCE PRN Opioid overdose Nifedipine 10 - 20 mg 07/16/24 13:08 Nifedipine 10 Mg Capsule PO Q20M PRN SBP> or= 160 OR DBP> or= 110 Protocol Nifedipine 30 mg 07/18/24 09:00 07/18/24 08:57 Nifedipine Er 30 Mg Tablet PO 30 mg DAILY ESTRELLA Administration Oxycodone HCl 5 - 10 mg 07/16/24 13:08 Oxycodone 5 Mg Tablet PO Q4HR PRN Severe Pain 6 -10 Simethicone 80 mg 07/16/24 13:08 07/17/24 19:07 Simethicone Chew 80 Mg Tablet PO 80 mg TID PRN Administration Gas Witch Angie/Glycerin 1 pad 07/16/24 13:08 Witch Angie/Glycerin 1 Pad TOP PRN PRN Itching Objective Vital Signs/Intake & Output Reviewed Vital Signs: Yes Vital Signs: Vital Signs x48h Temp Pulse Resp BP Pulse Ox 07/18/24 08:09 37.0 C 95 H 16 150/89 H 99 07/18/24 05:00 36.8 C 81 16 123/81 98 Intake & Output: Intake & Output 07/15/24 07/16/24 07/17/24 07/18/24 23:59 23:59 23:59 23:59 Intake Total 1999 / 1999 900 / 900 Output Total 355 / 355 3300 / 3300 Balance 1645 / 1645 -2400 / -2400 Weight (kg) 117 kg Objective General Appearance: positive No acute distress and Alert Eyes Bilateral: positive Normal inspection Neck: positive Nml inspection Respiratory: positive Breath sounds nml Cardiovascular: positive Regular rate & rhythm and No murmur Abdomen: positive Nml bowel sounds, No distention and Other (Uterine fundus at U-1, appropriately tender to palpation.) Skin: positive Color nml Extremities: positive Full ROM, Nml appearance and Pedal edema (Trace bilaterally) Neurologic/Psychiatric: positive Oriented x3, Motor nml and Mood/affect nml Lab Results 07/18/24 08:38 07/16/24 08:07 Other Labs: Lab Results x24hrs 07/18/24 Range/Units 08:38 WBC 8.0 (4.8-10.8) x10^3/uL RBC 3.43 L (4.20-5.40) 10^6/uL Hgb 10.3 L (12.0-16.0) g/dL Hct 30.8 L (37.0-47.0) % MCV 89.8 (81.0-99.0) fL MCH 30.0 (27.0-31.0) pg MCHC 33.4 (32.0-36.0) g/dL RDW 14.0 (12.0-15.0) % Plt Count 139 (130-450) 10^3/uL MPV 10.2 (7.9-10.8) fL Neut # (Auto) 6.2 (1.5-6.6) 10^3/uL Lymph # (Auto) 1.2 L (1.5-3.5) 10^3/uL Frio # (Auto) 0.4 (0.0-1.0) 10^3/uL Eos # (Auto) 0.1 (0.0-0.7) 10^3/uL Baso # (Auto) 0.0 (0.0-0.1) 10^3/uL Absolute Nucleated RBC 0.00 x10^3/uL Nucleated RBC % 0.0 /100WBC Assessment/Plan Problem List (1) care following delivery: Impression: POD #2 s/p uncomplicated repeat with bilateral salpingectomy (for sterilization). 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 Labs noted mild thrombocytopenia yesterday. No other si/sx of preE. - Start Procardia 30 mg daily and change VS to Q 4 hrs. - CMP and CBC obtained to assess for severe features. PLTs have trended up since yesterday. CMP is still pending - will follow-up results. - Discussed consideration for discharge later today if BPs improving and labs normal. - Cont routine postop care and / support. - Cont Tylenol/Motrin for pain with oxycodone prn for breakthrough pain. - Blood type A pos, Rubella non-immune, Varicella immune. MMR ordered and given. - Contraception: bilateral salpingectomy completed. - Reviewed discharge precautions and limitations in anticipation of possible discharge later today.
[2024-07-18 09:31] LABS: ALBUMIN 3.2 g/dL (3.2-5.5); ALBUMIN/GLOBULIN RATIO 1.2 (1.0-2.2); BILIRUBIN,TOTAL 0.3 mg/dL (0.2-1.0); CALCIUM 8.7 mg/dL (8.5-10.3); CREATININE 0.5 mg/dL (0.6-1.3); POTASSIUM 3.4 mmol/L (3.5-4.5); TOTAL PROTEIN 5.9 g/dL (6.4-8.9)
[2024-07-18 17:07] VITALS: BP 129/73; TEMP 99
--- NOTE | 2024-07-18 17:54 | Discharge Summary ---
"Discharge Summary Admit Date: 07/16/24 Discharge Date: 07/18/24 Discharging Provider: Dr. Renae Nash Primary Care Provider: Dr. Rene Tom Code Status: Attempt Resuscitation Discharge Facility Name: [facility] DIAGNOSES Admission Diagnoses: 1. Prior , desiring repeat 2. Maternal obesity 3. Advanced maternal age 4. Desired sterilization 5. Grand multigravida 6. Celiac disease Discharge Diagnoses with Status of Each Condition: 1. Same, now s/p repeat with bilateral salpingectomy (for sterilization) 2. -associated hypertension HPI History of Present Illness: Patient is a 39 yo admitted for repeat with tubal sterilization at 40+3 wks gestation. She has a hx of x 2 and x 3, and she was considering with the current gestation. She then opted for repeat when she did not enter spontaneous labor by 40+3 wks. Additionally, she desired permanent sterilization at the time of delivery. She denied contractions, leakage of fluid, or bleeding. Though she was not diagnosed with - associated HTN in the past, she reports she has a hx of BP elevation at term and . CONSULTS | PROCEDURES Consultations: None Procedures: Repeat with bilateral salpingectomy HOSPITAL COURSE Hospital Course: After an uncomplicated repeat with bilateral salpingectomy, she had normal vital signs and routine /postop course until late in the day of POD#1. At that time, she had a BP elevation of 150/80's. This was followed by a recurrent moderate elevation the following morning. Her POD #1 CBC was notable for platelets of 123K. Repeat CBC with CMP (performed for BP elevation) noted improvement in platelets to 139K. She was started on Procardia XL 30 mg on POD #2, and subsequent BPs were normal. She had a mild LUND after the nifedipine, which improved with rest, Tylenol, and caffeine. She otherwise met discharge criteria on POD #2, including tolerating a regular diet, controlling pain with PO meds (Tylenol and Motrin with rare to no oxycodone use), passing flatus, and lochia decreasing. She was bonding with the baby and without concerns. ALLERGIES Allergies Allergy/AdvReac Type Severity Reaction Status Date / Time barley Allergy Unknown Unknown Verified 07/10/24 10:58 gluten Allergy Unknown Unknown Verified 07/10/24 10:58 rye grass Allergy Unknown Unknown Verified 07/10/24 10:58 MEDICATIONS Ambulatory Orders Medication Instructions Recorded Confirmed ferrous sulfate 325 mg (65 mg 325 mg PO QDAY 05/15/24 07/16/24 iron) tablet vitamin#30 30 mg iron-10 1 cap PO DAILY 05/15/24 07/16/24 mg iron-folic acid 1 mg-omg3 capsule acetaminophen 500 mg tablet 1,000 mg (2 x 500 mg) PO Q8H #60 07/18/24 tabs docusate sodium 100 mg capsule 200 mg (2 x 100 mg) PO BID #60 caps 07/18/24 ibuprofen 600 mg tablet 600 mg PO Q6HR #60 tabs 07/18/24 naloxone 0.4 mg/mL injection 0.4 mg IV push (test dose) .ONCE 07/18/24 solution PRN Opioid overdose #10 mL nifedipine 30 mg tablet,extended 30 mg PO DAILY #30 tabs 07/18/24 release 24 hr oxycodone 5 mg tablet 5 - 10 mg (1 - 2 x 5 mg) PO Q4HR 07/18/24 PRN Severe Pain 6 -10 #20 tabs PHYSICAL EXAM AT DISCHARGE General Appearance: positive No acute distress and Alert Eyes Bilateral: positive Normal inspection Neck: positive Nml inspection Respiratory: positive No respiratory distress Cardiovascular: positive Regular rate & rhythm and No murmur Abdomen: positive Nml bowel sounds and Other (Fundus appropriately tender and firm at U-2) Skin: positive Color nml Extremities: positive Pedal edema (Trace bilaterally) Neurologic/Psychiatric: positive Oriented x3, Motor nml and Mood/affect nml LABS 07/18/24 08:38 07/18/24 08:38 QUALITY (Female Hip Fx Only) Was patient sent home on osteoporosis medication?: No FOLLOW UP Follow Up: BP check in 2 days; postop/incision check in 10-14 days TIME SPENT Time Spent in Discharge (Minutes): 25 Discharge Plan Discharge Patient Disposition: 01 GROUP HOME, Self Care Condition: Good Medically Cleared Date:: 07/18/24 Prescriptions: New nifedipine 30 mg Tablet Extended Release 24hr 30 mg PO DAILY Qty: 30 0RF naloxone 0.4 mg/mL Solution 0.4 mg IV push (test dose) .ONCE PRN (Reason: Opioid overdose) Qty: 10 0RF acetaminophen 500 mg Tablet 1,000 mg PO Q8H Qty: 60 0RF docusate sodium 100 mg Capsule 200 mg PO BID Qty: 60 0RF ibuprofen 600 mg Tablet 600 mg PO Q6HR Qty: 60 0RF oxycodone 5 mg Tablet 5 - 10 mg PO Q4HR PRN (Reason: Severe Pain 6 -10) Qty: 20 0RF Continued PNV #[id number] 30 mg iron-10 mg iron-1 mg capsule 1 cap PO DAILY ferrous sulfate 325 mg (65 mg iron) tablet 325 mg PO QDAY Discontinued acetaminophen [Tylenol] 325 mg capsule 325 mg PO Q6H PRN (Reason: pain) Activity Restrictions: Additional Comments Activity Restrictions/Additional Instructions: No driving until pain-free off narcotic pain medications; pelvic rest x 6 wks; no heavy lifting or strenuous exercise x 6 wks Diet: Regular Print Language: Tamazight Patient Instructions: Surgery Anesthesia After, Follow-up Care: Rene Tom MD [Provider Admit Priv/Credential] - (Call clinic for visit/BP check on 07/20 and incision/postop check 10-14 days )"
== END 2024-07-18 18:00 | disposition home or self-care (01) | DRG 785 ==
LOC: FBP 07-16 08:15
PROVIDERS: ADMIT Obstetrics & Gynecology; ATTEND Obstetrics & Gynecology
DX: Z30.2 Encounter for sterilization; K90.0 Celiac disease; E66.01 Morbid (severe) obesity due to excess calories; O99.62 Diseases of the digestive system complicating childbirth; Z3A.40 40 weeks gestation of pregnancy; O48.0 Post-term pregnancy; D69.6 Thrombocytopenia, unspecified; O72.3 Postpartum coagulation defects; O99.214 Obesity complicating childbirth; Z37.0 Single live birth; O34.211 Maternal care for low transverse scar from previous cesarean delivery; O13.4 Gestational [pregnancy-induced] hypertension without significant proteinuria, complicating childbirth